=== PATIENT | female | born 1945 | race Two or more races ===

== ENCOUNTER 2016-09-21 10:20 | Day surgery (SDC) | payer MEDICARE, OTHER ==
[2016-09-21] MEDS ORDERED: LACTATED RINGERS 1,000 ML ONE (10:23)
[2016-09-21] MEDS ORDERED: IV START KIT ONE (10:24)
[2016-09-21] MEDS ORDERED: MIDAZOLAM HCL 5 MG/5 ML VIAL ONE (12:12)
[2016-09-21] MEDS ORDERED: FENTANYL 5 ML ONE (12:12)
== END 2016-09-21 14:00 | disposition home or self-care (01) ==
LOC: SDC 10:20
PROVIDERS: ATTEND Internal Medicine Gastroenterology
PROC: 0DJD8ZZ Inspection of Lower Intestinal Tract, Via Natural or Artificial Opening Endoscopic (ICD-10-PCS; principal; 2016-09-21)
DX: Z12.11 Encounter for screening for malignant neoplasm of colon (principal)
CPT/HCPCS: J3010; J2250; J7120; G0121